=== PATIENT | female | born 1980 | race Caucasian/White ===

== ENCOUNTER 2023-02-25 17:57 | Emergency (ER) | payer MEDICAID ==
[~2023-02-25] VITALS: Ht 154.9 cm; Wt 66.2 kg
[2023-02-25 18:11] VITALS: BP 124/87; PULSE 78; RESP 18; TEMP 98.1; O2SAT 100
[2023-02-25 18:25] VITALS: O2SAT 100
--- NOTE | 2023-02-25 18:25 | NUR ---
42YO FEMALE PT C/O L PELVIC PAIN AND DYSURIA X1WEEK. REPORTS SUDDEN INTERMITTENT ONSETS W/ RADIATION TO LOWER BACK. DENIES N/V/D,FEVER, CHILLS OR TAKING MEDICATION. PT AAOX4, HOB POSITIONED PER COMFORT. CALL LIGHT WITHIN REACH HX: PRE DIABETES NKA
--- NOTE | 2023-02-25 18:31 | NUR ---
MD GRECO AT BEDSIDE FOR EVALUATION
--- NOTE | 2023-02-25 18:41 | NUR ---
The patient's care was reviewed and supervised by Vernon Ramsey RN.
[2023-02-25] MEDS ORDERED: KETOROLAC 30 MG/ML VIAL IM ONE (18:45)
[2023-02-25 19:11] LABS: BASOPHILS % (AUTO) 0.5 % (0.0-2.0); EOSINOPHILS # (AUTO) 0.2 K/uL (0-0.4); EOSINOPHILS % (AUTO) 2.6 % (0.0-4.0); HEMATOCRIT 37.5 % (36-48); HEMOGLOBIN 12.4 g/dL (12.0-16.0); LYMPHOCYTES # (AUTO) 3.7 K/uL (2.5-16.5); LYMPHOCYTES % (AUTO) 38.9 % (20.5-51.1); MEAN CORPUSCULAR HEMOGLOBIN 28 pg (27-31); MEAN CORPUSCULAR HGB CONC 33 g/dL (33-37); MEAN CORPUSCULAR VOLUME 84.6 fL (80-94); MONOCYTES # (AUTO) 0.6 K/uL (0.8-1.0); MONOCYTES % (AUTO) 6.4 % (1.7-9.3); NEUTROPHILS # (AUTO) 4.9 K/uL (1.8-7.7); NEUTROPHILS % (AUTO) 51.6 % (42.2-75.2); PLATELET COUNT (AUTO) 311 K/uL (140-450); RED BLOOD CELL COUNT(AUTO) 4.43 MIL/uL (4.20-5.40); WHITE BLOOD COUNT (AUTO) 9.5 K/uL (4.8-10.8)
--- NOTE | 2023-02-25 19:22 | NUR ---
REPORT GIVEN TO TIFFANY RODGERS. TRANSFER OF CARE AT THIS TIME
[2023-02-25 19:25] LABS: ALBUMIN 3.7 g/dL (3.4-5.0); CARBON DIOXIDE 26.7 mmol/L (21-32); CREATININE 0.8 mg/dL (0.6-1.3); POTASSIUM 3.7 mmol/L (3.5-5.1); TOTAL BILIRUBIN 0.3 mg/dL (0.0-1.0)
[2023-02-25] MEDS ORDERED: CEPH-588 PO (19:38)
[2023-02-25] MEDS ORDERED: PYR100 PO (19:38)
[2023-02-25] MEDS ORDERED: IBUP-2213 PO (19:38)
--- NOTE | 2023-02-25 20:32 | NUR ---
Patient discharged with v/s stable. Written and verbal after care instructions given and explained. Patient verbalized understanding. Ambulatory with to car. All questions addressed prior to discharge. Advised to follow up with PMD.
[2023-02-25 20:33] VITALS: BP 120/78; PULSE 84; RESP 18; TEMP 98.4; O2SAT 98
== END 2023-02-25 20:32 | disposition home or self-care (01) ==
LOC: MED 17:57
DX: N39.0 Urinary tract infection, site not specified (principal); E11.9 Type 2 diabetes mellitus without complications; Z79.899 Other long term (current) drug therapy; Z79.2 Long term (current) use of antibiotics; Z79.1 Long term (current) use of non-steroidal anti-inflammatories (NSAID)
CPT/HCPCS: 36415; 80053; 81002; 81025; 83690; 85025; 96372; 99283; J1885

== ENCOUNTER 2023-05-12 05:50 | Emergency (ER) | payer MEDICAID ==
[~2023-05-12] VITALS: Ht 154.9 cm; Wt 64.4 kg
[~2023-05-12 05:50] MED LIST: CEPH-588 PO; IBUP-2213 PO; PYR100 PO
[2023-05-12 06:14] VITALS: BP 93/65; PULSE 68; RESP 16; TEMP 98.4; O2SAT 98
[2023-05-12 08:52] LABS: APPEARANCE,URINE CLEAR (CLEAR); BILIRUBIN,URINE NEGATIVE (NEGATIVE); BLOOD, URINE TRACE-I (NEGATIVE); COLOR,URINE YELLOW (YELLOW); LEUKOCYTE ESTERASE ,URINE 2+ (NEGATIVE); NITRITE, URINE NEGATIVE (NEGATIVE); PROTEIN,URINE NEGATIVE (NEGATIVE); UGLUCOSE NEGATIVE (NEGATIVE); UROBILINOGEN,URINE 0.2 EU/dL (0.2 - 1)
[2023-05-12] MEDS ORDERED: NITR100C7 PO (08:57)
[2023-05-12] MEDS ORDERED: PHEN-1877 PO (08:57)
[2023-05-12 09:00] VITALS: BP 103/65; PULSE 75; RESP 13; TEMP 98.4; O2SAT 99
[2023-05-12 09:18] LABS: BACTERIA,URINE >30 (MANY) /HPF (None Seen); MUCUS,URINE None Seen /LPF (None Seen); RBC,URINE 0-5 /HPF (0-5); SQUAMOUS EPITHELIAL CELL,UR 4-10 (MOD) /LPF (0-3 (FEW)); YEAST,URINE None Seen /HPF (None Seen)
[2023-05-12 09:19] LABS: TRICHOMONAS,URINE None Seen /HPF (None Seen); WHITE BLOOD CELL CASTS,URINE None Seen /LPF (None Seen)
== END 2023-05-12 09:00 | disposition home or self-care (01) ==
LOC: MED 05:50
DX: N39.0 Urinary tract infection, site not specified (principal); Z79.899 Other long term (current) drug therapy
CPT/HCPCS: 81001; 81025; 87086; 87491; 99283